=== PATIENT | female | born 1975 ===

== ENCOUNTER 2017-03-11 14:13 | Inpatient (IN) | payer OTHER, MEDICAID ==
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
[2017-03-11 18:08] LABS: BASO # 0.1 K/uL (0.0-0.2); BASO % 1.3 % (0.0-2.0); EOS # 0.1 K/uL (0.0-0.7); EOS % 1.7 % (0.0-4.0); HEMOGLOBIN 12.4 g/dL (12.0-16.0); LYMPH # 2.2 K/uL (1.0-4.3); LYMPH % 29.2 % (20.0-40.0); MEAN CELL VOLUME 82.8 fl (81.0-99.0); MEAN CORPUSCULAR HEMOGLOBIN 26.6 pg (27.0-31.0); MEAN CORPUSCULAR HGB CONC 32.1 g/dL (33.0-37.0); MEAN PLATELET VOLUME 8.7 fl (7.2-11.7); MONO # 0.5 K/uL (0.0-0.8); MONO % 6.4 % (0.0-10.0); NEUT # 4.6 K/uL (1.8-7.0); NEUT % 61.4 % (50.0-75.0); RBC 4.67 Mil/uL (3.80-5.20); RED CELL DISTRIBUTION WIDTH 13.3 % (11.5-14.5); WHITE BLOOD COUNT 7.5 K/uL (4.8-10.8)
[2017-03-11 18:20] LABS: ALB/GLOB RATIO 1.2 (1.0-2.1); ALBUMIN 3.7 g/dL (3.5-5.0); ALT/SGPT 44 U/L (9-52); AST/SGOT 29 U/L (14-36); BLOOD UREA NITROGEN 13 mg/dl (7-17); GFR AFRICAN-AMERICAN > 60; GFR NON-AFRICAN AMERICAN > 60
[2017-03-11 18:46] LABS: SQUAMOUS EPITHIAL 2 /hpf (0-5); URINE BACTERIA OCC (<OCC); URINE BILIRUBIN NEGATIVE (NEGATIVE); URINE BLOOD NEGATIVE (NEGATIVE); URINE CLARITY SLIGHTY-CLOUDY (Clear); URINE COLOR YELLOW (YELLOW); URINE GLUCOSE (UA) NEG (Normal); URINE LEUKOCYTE ESTERASE NEG Leu/uL (Negative); URINE NITRATE NEGATIVE (NEGATIVE); URINE PROTEIN NEGATIVE (NEGATIVE); URINE UROBILINOGEN 0.2-1.0 mg/dL (0.2-1.0)
[2017-03-11 18:55] LABS: BARBITURATES, UR NEGATIVE (NEGATIVE); OPIATES, UR NEGATIVE (NEGATIVE); PHENCYCLIDINE, UR NEGATIVE (NEGATIVE)
[2017-03-11 19:25] LABS: BENZODIAZEPINES, UR POSITIVE (NEGATIVE)
[2017-03-11] MEDS ORDERED: DiphenhydrAMINE 50 mg/ml Inj IM PRN (21:09)
[2017-03-11] MEDS ORDERED: Magnesium Hydroxide Susp 30 ml UD PO PRN (21:09)
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
--- NOTE | 2017-03-12 08:45 | RAD ---
HISTORY: admit COMPARISON: No prior. FINDINGS: LUNGS: No active pulmonary disease. PLEURA: No significant pleural effusion identified, no pneumothorax apparent. CARDIOVASCULAR: Normal. OSSEOUS STRUCTURES: No significant abnormalities. VISUALIZED UPPER ABDOMEN: Normal. OTHER FINDINGS: None. IMPRESSION: No acute cardiopulmonary disease appreciated.
[2017-03-12 09:22] LABS: T4 14.7 ug/dl (5.5-11.0)
[2017-03-12] MEDS ORDERED: Pneumococcal 23-Valent Vaccine IM ONE (10:00)
[2017-03-12] MEDS ORDERED: Influenza Vaccine 18yr & older 0.5 ML/45 MCG SYR IM ONE (10:00)
[2017-03-12] MEDS ORDERED: Patient's Own Med (Cyclosporine [Restasis] 1 DROP) EACHEYE SCH (13:15)
[2017-03-12] MEDS ORDERED: Artificial Tears Opht Soln OU PRN (14:45)
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
--- NOTE | 2017-03-12 19:34 | CARD ---
APPROVED REPORT EKG Measurement Heart [id number] <Conclusion> Normal sinus rhythm Incomplete right bundle branch block Borderline ECG
[2017-03-13] MEDS ORDERED: NORGESTIMATE ETHINYL ESTRADIOL PO SCH (09:00)
[2017-03-13 11:56] VITALS: O2SAT 20
--- NOTE | 2017-03-13 13:13 | PCM.PYCHPN ---
Psychiatric Progress Note - Psychiatric Progress Note Patient seen today, length of contact: pt seen and evaluated Patient Chief Complaint: Pt has been feeling still very depressed and anxious and still has lot of flashbacks from past trauma and also feels paranoid a lot..pt denies suicidal ideation .no side effects to meds .pt still has tremors and wants cogentin to be 2 mg bid and she takes geodon as 80 mg twice a day. Medication Change: Yes Medical Record Reviewed: Yes Mental Status Examination - Cognitive Function Orientation: Person, Place, Situation, Time Attention: Poor Concentration: Poor Association: WNL Fund of Knowledge: WNL - Mood Mood: Depressed - Affect Affect: Constricted - Formal Thought Process Formal Thought Process: Hallucinations - Suicidal Ideation Suicidal Ideation: No - Homicidal Ideation Homicidal Ideation: No Goal/Treatment Plan - Goal/Treatment Plan Progress Toward Problem(s) and Goals/Treatment Plan: pt has agreed to start on geodon will increase it to 80 am and hs to target depression and psychosis and mood,continue exapro 20 mg daily and trazodone 200 mg hs and restoril 30 mg hs and increase klonopin to 0.5 mg tid and cogentin 2 mg bid mary follow up with hospitalist regarding medical issues
--- NOTE | 2017-03-14 14:29 | PCM.PYCHPN ---
Psychiatric Progress Note - Psychiatric Progress Note Patient seen today, length of contact: pt seen and evaluated Patient Chief Complaint: I am tired and I cant be in a group home Problems Identified/Issues Discussed: pt seen in bed , guarded, isolative, paranoid poor eye contact continues to report depressed mood, with passive suicidal ideation no plan on the unit denied command hallucinations , no reported side effects of medications DSM 5 Symptoms Update: schizoaffective disorder Medication Change: No Medical Record Reviewed: Yes Mental Status Examination - Cognitive Function Orientation: Person, Place, Situation, Time Attention: Poor Concentration: Poor Association: WNL Fund of Knowledge: WNL - Mood Mood: Depressed - Affect Affect: Constricted - Formal Thought Process Formal Thought Process: Hallucinations - Suicidal Ideation Suicidal Ideation: No - Homicidal Ideation Homicidal Ideation: No Goal/Treatment Plan - Goal/Treatment Plan Need for Continued Stay: Severe depression anxiety, Discharge may exacerbated symptoms Progress Toward Problem(s) and Goals/Treatment Plan: continue with geodon lexapro and trazdone monitor pt for psychopharmacological effects encourage to attendgroups group and supportive therapy Estimated Date of D/C: 03/18/17
--- NOTE | 2017-03-15 12:47 | PCM.PYCHPN ---
Psychiatric Progress Note - Psychiatric Progress Note Patient seen today, length of contact: pt seen and evaluated Patient Chief Complaint: I am too anxious about being in a alf Problems Identified/Issues Discussed: pt seen in bed , continues to be guarded,and isolative, unkempt , needs a lot of encouragment to attaend groups pt reported feeling anxious and worried about being discharged to a alf continues to report depressed mood, with passive suicidal ideation no plan on the unit denied command hallucinations , no reported side effects of medications Medication Change: Yes (klonopin 0.25mg tid) Medical Record Reviewed: Yes Mental Status Examination - Cognitive Function Orientation: Person, Place, Situation, Time Attention: Poor Concentration: Poor Association: WNL Fund of Knowledge: WNL Decription of patient's judgement and insights: impaired insight and poor judgment - Mood Mood: Depressed - Affect Affect: Constricted - Speech Speech: Soft - Formal Thought Process Formal Thought Process: Hallucinations - Suicidal Ideation Suicidal Ideation: No - Homicidal Ideation Homicidal Ideation: No Goal/Treatment Plan - Goal/Treatment Plan Need for Continued Stay: Severe depression anxiety, Discharge may exacerbated symptoms Progress Toward Problem(s) and Goals/Treatment Plan: continue with cosme serrano and trazdone monitor pt for psychopharmacological effects encourage to attendgroups group and supportive therapy addiction social worker to arrange for the discharge plan Estimated Date of D/C: 03/18/17
--- NOTE | 2017-03-16 13:34 | PCM.PYCHPN ---
Psychiatric Progress Note - Psychiatric Progress Note Patient seen today, length of contact: pt seen and evaluated Patient Chief Complaint: I am worried about my mother Problems Identified/Issues Discussed: pt on evaluation, more visible on the unit, less isolative continues to present with anxious mood and affect pt reported worried about her mother and being in a fci, concrete thought process, no reported side effects of medications, denied suicidal or homicidal ideations denied command hallucinations DSM 5 Symptoms Update: schizophrenia Medication Change: Yes (start neurontin for anxiety) Medical Record Reviewed: Yes Mental Status Examination - Cognitive Function Orientation: Person, Place, Situation, Time Attention: Poor Concentration: Poor Association: WNL Fund of Knowledge: WN Decription of patient's judgement and insights: impaired insight and poor judgment - Mood Mood: Depressed, Anxious - Affect Affect: Constricted - Speech Speech: Soft - Formal Thought Process Formal Thought Process: Paranoia, Circumstantial Psychotic Thoughts and Behaviors: pt paranoid and guarded, denied perceptual disturbances, non elicited - Suicidal Ideation Suicidal Ideation: No - Homicidal Ideation Homicidal Ideation: No Goal/Treatment Plan - Goal/Treatment Plan Need for Continued Stay: Severe depression anxiety, Discharge may exacerbated symptoms Progress Toward Problem(s) and Goals/Treatment Plan: continue with geodon lexapro and trazdone start neurontin 100mg tid for anxiety monitor pt for psychopharmacological effects encourage to attend groups group and supportive therapy social and political studies professor to arrange for the discharge plan Estimated Date of D/C: 03/18/17
[2017-03-16] MEDS: Alum-Mag Hydrox-Simethicone Susp (30 mL) PO PRN (22:17)
--- NOTE | 2017-03-17 12:24 | PCM.PYCHPN ---
Psychiatric Progress Note - Psychiatric Progress Note Patient seen today, length of contact: pt seen and evaluated Patient Chief Complaint: I think my mother is not well Problems Identified/Issues Discussed: pt on evaluation, presenting with anxious mood and affect as her mother has been admitted to medical floor, pt reported poor sleep with early insomnia, contines to be anxious about being discharged to nursing home, concrete thought process and limited insight into illness, denied any current suicidal or homicidal ideations denied perceptual disturbances, no reported side effects of medications DSM 5 Symptoms Update: schizoaffective disorder Medication Change: No Medical Record Reviewed: Yes Mental Status Examination - Cognitive Function Orientation: Person, Place, Situation, Time Attention: Poor Concentration: Poor Association: WNL Fund of Knowledge: WNL Decription of patient's judgement and insights: impaired insight and poor judgment - Mood Mood: Depressed, Anxious - Affect Affect: Constricted - Speech Speech: Soft - Formal Thought Process Formal Thought Process: Paranoia, Circumstantial Psychotic Thoughts and Behaviors: pt paranoid and guarded, denied perceptual disturbances, non elicited - Suicidal Ideation Suicidal Ideation: No - Homicidal Ideation Homicidal Ideation: No Goal/Treatment Plan - Goal/Treatment Plan Need for Continued Stay: Severe depression anxiety, Discharge may exacerbated symptoms Progress Toward Problem(s) and Goals/Treatment Plan: continue with geodon lexapro and trazdone continue neurontin 100mg tid for anxiety monitor pt for psychopharmacological effects and side effect profile encourage to attend groups group and supportive therapy social science analyst to arrange for the discharge plan Estimated Date of D/C: 03/18/17
--- NOTE | 2017-03-18 13:28 | PCM.PYCHPN ---
Psychiatric Progress Note - Psychiatric Progress Note Patient seen today, length of contact: pt seen and evaluated Patient Chief Complaint: I slept better last night Problems Identified/Issues Discussed: pt on evaluation, more interactive, reported feeling less anxious as she had better sleep last night, encouraged pt to participate in groups pt denied any current sucidal or homicidal ideations, denied perceptual disturbances, no reported side effects of current medications DSM 5 Symptoms Update: schizophrenia Medication Change: No Medical Record Reviewed: Yes Mental Status Examination - Cognitive Function Orientation: Person, Place, Situation, Time Attention: WNL Concentration: Poor Association: WNL Fund of Knowledge: Poor Decription of patient's judgement and insights: impaired insight and poor judgment - Mood Mood: Depressed, Anxious - Affect Affect: Constricted - Speech Speech: Soft - Formal Thought Process Formal Thought Process: Paranoia, Circumstantial Psychotic Thoughts and Behaviors: pt paranoid and guarded, denied perceptual disturbances, non elicited - Suicidal Ideation Suicidal Ideation: No - Homicidal Ideation Homicidal Ideation: No Goal/Treatment Plan - Goal/Treatment Plan Need for Continued Stay: Severe depression anxiety, Discharge may exacerbated symptoms Progress Toward Problem(s) and Goals/Treatment Plan: continue with geodon, lexapro and trazdone repeat EKG , pt on geodon continue neurontin 100 mg tid for anxiety monitor pt for psychopharmacological effects and side effect profile encourage to attend groups group and supportive therapy health and social care teacher to arrange for the discharge plan Estimated Date of D/C: 03/18/17
--- NOTE | 2017-03-18 18:04 | CARD ---
APPROVED REPORT EKG Measurement Heart [id number] <Conclusion> Normal sinus rhythm Normal ECG
--- NOTE | 2017-03-19 11:05 | PCM.PYCHPN ---
Psychiatric Progress Note - Psychiatric Progress Note Patient seen today, length of contact: Patient evaluated, case discussed with team, chart reviewed Patient Chief Complaint: "I heard voices." Problems Identified/Issues Discussed: Patient has thought blocking and has delayed responses when senior copywriter asks questions. She is disorganized at times and perseverative. She reports that she heard auditory hallucinations last night of people talking/laughing/ cursing. She is also paranoid that someone is trying to harm her mother. She is difficult to redirect on conversation. It is unclear how complaint the patient was with medications prior to admission. We discussed continuing the medications and possible titration if the patient is agreeable. Medication Change: No Medical Record Reviewed: Yes Consults ordered or reviewed: Medicine consult Mental Status Examination - Cognitive Function Orientation: Person, Place, Situation, Time Memory: Impaired Attention: WNL Concentration: Poor Association: Loose Fund of Knowledge: Poor Decription of patient's judgement and insights: Poor I/J - Mood Mood: Depressed, Anxious - Affect Affect: Constricted - Speech Speech: Soft - Formal Thought Process Formal Thought Process: Paranoia, Loosening of associations, Circumstantial Psychotic Thoughts and Behaviors: +Paranoia - Suicidal Ideation Suicidal Ideation: No - Homicidal Ideation Homicidal Ideation: No Goal/Treatment Plan - Goal/Treatment Plan Need for Continued Stay: Remain at risks for inpatient hospitalization, Severe depression anxiety, Discharge may exacerbated symptoms Progress Toward Problem(s) and Goals/Treatment Plan: Schizoaffective Disorder -Individual and group therapy -Continue current medications -Disposition planning Estimated Date of D/C: 03/23/17
--- NOTE | 2017-03-20 11:12 | PCM.PYCHPN ---
Psychiatric Progress Note - Psychiatric Progress Note Patient seen today, length of contact: Patient evaluated, case discussed with team, chart reviewed Patient Chief Complaint: "I heard voices." Problems Identified/Issues Discussed: Patient is disorganized at times. She is paranoid that someone is trying to harm her mother. She is difficult to redirect on conversation. It is unclear how complaint the patient was with medications prior to admission. We discussed continuing the medications and possible titration if the patient is agreeable. Medication Change: No Medical Record Reviewed: Yes Consults ordered or reviewed: Medicine consult Mental Status Examination - Cognitive Function Orientation: Person, Place, Situation, Time Memory: Impaired Attention: WNL Concentration: Poor Association: Loose Fund of Knowledge: Poor Decription of patient's judgement and insights: Poor I/J - Mood Mood: Depressed, Anxious - Affect Affect: Constricted - Speech Speech: Soft - Formal Thought Process Formal Thought Process: Paranoia, Loosening of associations, Circumstantial Psychotic Thoughts and Behaviors: +Paranoia - Suicidal Ideation Suicidal Ideation: No - Homicidal Ideation Homicidal Ideation: No Goal/Treatment Plan - Goal/Treatment Plan Need for Continued Stay: Remain at risks for inpatient hospitalization, Severe depression anxiety, Discharge may exacerbated symptoms Progress Toward Problem(s) and Goals/Treatment Plan: Schizoaffective Disorder -Individual and group therapy -Continue current medications -Disposition planning Estimated Date of D/C: 03/23/17
[2017-03-21] MEDS: Alum-Mag Hydrox-Simethicone Susp (30 mL) PO PRN (21:20)
--- NOTE | 2017-03-22 18:58 | PCM.PYCHPN ---
Psychiatric Progress Note - Psychiatric Progress Note Patient seen today, length of contact: Patient evaluated, case discussed with team, chart reviewed Patient Chief Complaint: pt reports was feeling worried and not sleeping, pt was seen in doorway of room Problems Identified/Issues Discussed: alteration in thought process and mood alteration in sleep Medical Problems: per chart Diagnostic Results: per psychiatry per medicine per nursing per social security benefits interviewer DSM 5 Symptoms Update: reports feeling calmer, sleeping is getting better staff report that pt appears to be at baseline has been adherent with medications visualization on unit Medication Change: No Medical Record Reviewed: Yes Consults ordered or reviewed: per hospitalist Mental Status Examination - Cognitive Function Orientation: Person, Place, Situation, Time Memory: Impaired Attention: WNL Concentration: Poor Association: Loose Fund of Knowledge: Poor Decription of patient's judgement and insights: somewhat impaired - Mood Mood: Depressed, Anxious - Affect Affect: Constricted - Speech Speech: Soft - Formal Thought Process Formal Thought Process: Loosening of associations, Circumstantial Psychotic Thoughts and Behaviors: paranoia appears at baseline per staff - Suicidal Ideation Suicidal Ideation: No - Homicidal Ideation Homicidal Ideation: No Goal/Treatment Plan - Goal/Treatment Plan Need for Continued Stay: Remain at risks for inpatient hospitalization, Discharge may exacerbated symptoms Progress Toward Problem(s) and Goals/Treatment Plan: inpt admission visualization/vital signs per protocol and per clinical status adjust meds per clinical status access prn Eritrean speaking staff staff were in discussion with insurance -discharge planning in progress Estimated Date of D/C: 03/23/17 - Smoking Cessation Smoking Cessation Initiated: No Reason for not providing: pt defers
--- NOTE | 2017-03-23 09:59 | PCM.PYCHPN ---
Psychiatric Progress Note - Psychiatric Progress Note Patient seen today, length of contact: Patient evaluated, case discussed with team, chart reviewed Patient Chief Complaint: "I'm okay." Problems Identified/Issues Discussed: Patient is more organized. She denies acute paranoia or delusions. She reports that her mood is improving. We discussed that her current medications and the importance of compliance with treatment and medications. We discussed that the Restoril will be lowered to reduce risk of adverse effects. No current adverse effect to medications reported. Medication Change: Yes (Lower Restoril to 15 mg PO HS; Stop Neurotin) Medical Record Reviewed: Yes Consults ordered or reviewed: Medicine consult Mental Status Examination - Cognitive Function Orientation: Person, Place, Situation, Time Memory: Impaired Attention: WNL Association: WNL Fund of Knowledge: [facility] Decription of patient's judgement and insights: Fair I/J - Mood Mood: Anxious - Affect Affect: Constricted - Speech Speech: Appropriate - Formal Thought Process Formal Thought Process: No Impairment Psychotic Thoughts and Behaviors: NO AH/VH/paranoia - Suicidal Ideation Suicidal Ideation: No - Homicidal Ideation Homicidal Ideation: No Goal/Treatment Plan - Goal/Treatment Plan Need for Continued Stay: Remain at risks for inpatient hospitalization, Discharge may exacerbated symptoms Progress Toward Problem(s) and Goals/Treatment Plan: Schizoaffective Disorder; will discharge tomorrow w/ outpatient follow-up -Individual and group therapy -Continue Lexapro, Trazodone and Geodon; Lower Restoril to 15 mg PO HS; Stop Neurontin -Disposition planning Estimated Date of D/C: 03/24/17
[2017-03-24 09:19] VITALS: BP 114/77; PULSE 110; RESP 20; TEMP 97.2
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
== END 2017-03-24 14:45 | disposition home or self-care (01) | DRG 885 ==
LOC: H.ER 14:13 → H.ERHOLD 19:12 → H.PSYCH 20:56 → UNDODISIN 03-14 13:54
PROVIDERS: ADMIT Psychiatry & Neurology Psychiatry; ATTEND Psychiatry & Neurology Psychiatry
PROC: GZHZZZZ Group Psychotherapy (ICD-10-PCS; 2017-03-11)
PROC: GZ56ZZZ Individual Psychotherapy, Supportive (ICD-10-PCS; 2017-03-11)
PROC: 3E0234Z Introduction of Serum, Toxoid and Vaccine into Muscle, Percutaneous Approach (ICD-10-PCS; principal; 2017-03-12)
DX: F25.9 Schizoaffective disorder, unspecified (principal); R45.851 Suicidal ideations; F41.9 Anxiety disorder, unspecified; H04.123 Dry eye syndrome of bilateral lacrimal glands; Z23 Encounter for immunization

== ENCOUNTER 2017-04-07 17:06 | Emergency (ER) | payer MEDICAID ==
[2017-04-07 17:17] VITALS: PULSE 98; RESP 16; TEMP 98.1; O2SAT 100
--- NOTE | 2017-04-07 17:23 | ED PDOC ---
HPI: Psych/Substance Abuse Time Seen by Provider: 04/07/17 17:23 Chief Complaint (Nursing): Psychiatric Evaluation Chief Complaint (Provider): crisis eval History Per: Patient, EMS, Other (Police) Additional Complaint(s): 41-year-old female presents to emergency department for crisis evaluation. Patient is currently non-domiciled and was sitting in [employer] with her mother when she started to have thoughts of wanting to harm herself. As per police, patient had handful of pills in her hand and was threatening to take the pills. Patient currently lives in [facility]. She offers no acute medical complaints at this time. Past Medical History Reviewed: Historical Data, Nursing Documentation, Vital Signs Vital Signs: Last Vital Signs Temp 98.1 F 04/07/17 17:17 Pulse 98 H 04/07/17 17:17 Resp 16 04/07/17 17:17 BP Pulse Ox 100 04/07/17 17:17 - Medical History PMH: Depression, Schizophrenia - Family History Family History: States: No Known Family Hx - Living Arrangements Living Arrangements: With Family - Social History Current smoker - smoking cessation education provided: No Alcohol: None - Allergies Allergies/Adverse Reactions: Allergies Allergy/AdvReac Type Severity Reaction Status Date / Time No Known Allergies Allergy Verified 04/07/17 17:11 Review of Systems ROS Statement: Except As Marked, All Systems Reviewed And Found Negative Constitutional: Negative for: Fever Respiratory: Negative for: Cough Gastrointestinal: Negative for: Vomiting Psych: Positive for: Suicidal ideation Physical Exam - Reviewed Nursing Documentation Reviewed: Yes Vital Signs Reviewed: Yes - Physical Exam Appears: Positive for: Well, Non-toxic, No Acute Distress Skin: Negative for: Rash Eye Exam: Positive for: Normal appearance Cardiovascular/Chest: Positive for: Regular Rate, Rhythm Respiratory: Positive for: Normal Breath Sounds Gastrointestinal/Abdominal: Positive for: Soft. Negative for: Tenderness Back: Negative for: L CVA Tenderness, R CVA Tenderness Extremity: Positive for: Normal ROM Neurologic/Psych: Positive for: Alert, Oriented - ECG O2 Sat by Pulse Oximetry: 100 Pulse Ox Interpretation: Normal Medical Decision Making Medical Decision Makin41 year old here for crisis eval Plan: 1:1 bedside observation Crisis eval As per crisis counselor and psychiatrist stonecutter apprentice hand, Dr. Flores patient does not meet criteria for admission and is stable for discharge. Disposition - Clinical Impression Clinical Impression: Depression - Patient ED Disposition Is Patient to be Admitted: No Counseled Patient/Family Regarding: Diagnosis, Need For Followup - Disposition Referrals: [facility] [Outside] Disposition: Routine/Home Disposition Time: 18:36 Condition: STABLE Instructions: Depression Forms: [employer] (Tanzanian)
[2017-04-07 18:29] LABS: BASO # 0.1 K/uL (0.0-0.2); BASO % 0.9 % (0.0-2.0); EOS # 0.1 K/uL (0.0-0.7); EOS % 0.6 % (0.0-4.0); HEMOGLOBIN 13.2 g/dL (12.0-16.0); LYMPH # 1.8 K/uL (1.0-4.3); LYMPH % 17.5 % (20.0-40.0); MEAN CELL VOLUME 83.5 fl (81.0-99.0); MEAN CORPUSCULAR HEMOGLOBIN 26.5 pg (27.0-31.0); MEAN CORPUSCULAR HGB CONC 31.7 g/dL (33.0-37.0); MEAN PLATELET VOLUME 9.5 fl (7.2-11.7); MONO # 0.8 K/uL (0.0-0.8); MONO % 7.6 % (0.0-10.0); NEUT # 7.5 K/uL (1.8-7.0); NEUT % 73.4 % (50.0-75.0); NRBC % 0.1 % (0.0-0.0); RBC 4.98 Mil/uL (3.80-5.20); WHITE BLOOD COUNT 10.2 K/uL (4.8-10.8)
[2017-04-07 18:39] LABS: ACETAMINOPHEN < 10.0 ug/ml (10.0-30.0); SALICYLATE < 1.0 mg/dl
[2017-04-07 18:40] LABS: ALB/GLOB RATIO 1.4 (1.0-2.1); ALBUMIN 4.6 g/dL (3.5-5.0); ALT/SGPT 30 U/L (9-52); AST/SGOT 33 U/L (14-36); BLOOD UREA NITROGEN 11 mg/dl (7-17); CALCIUM 9.4 mg/dL (8.4-10.2); GFR AFRICAN-AMERICAN > 60; GFR NON-AFRICAN AMERICAN > 60
== END 2017-04-07 18:40 | disposition home or self-care (01) ==
LOC: MERGE 17:06 → H.ER 17:06
DX: F32.9 Major depressive disorder, single episode, unspecified (principal)

== ENCOUNTER 2017-04-14 04:12 | Inpatient (IN) | payer MEDICAID ==
[2017-04-14 04:30] VITALS: BMI 22.1
[2017-04-14 05:02] LABS: BASO # 0.1 K/uL (0.0-0.2); BASO % 0.6 % (0.0-2.0); EOS % 0.4 % (0.0-4.0); HEMOGLOBIN 12.6 g/dL (12.0-16.0); LYMPH # 1.3 K/uL (1.0-4.3); LYMPH % 13.9 % (20.0-40.0); MEAN CELL VOLUME 82.8 fl (81.0-99.0); MEAN CORPUSCULAR HEMOGLOBIN 26.8 pg (27.0-31.0); MEAN CORPUSCULAR HGB CONC 32.4 g/dL (33.0-37.0); MEAN PLATELET VOLUME 9.6 fl (7.2-11.7); MONO # 0.6 K/uL (0.0-0.8); MONO % 6.6 % (0.0-10.0); NEUT # 7.3 K/uL (1.8-7.0); NEUT % 78.5 % (50.0-75.0); RBC 4.68 Mil/uL (3.80-5.20); RED CELL DISTRIBUTION WIDTH 13.9 % (11.5-14.5); WHITE BLOOD COUNT 9.4 K/uL (4.8-10.8)
[2017-04-14 05:12] LABS: ALB/GLOB RATIO 1.4 (1.0-2.1); ALBUMIN 4.1 g/dL (3.5-5.0); ALT/SGPT 37 U/L (9-52); AST/SGOT 20 U/L (14-36); BLOOD UREA NITROGEN 14 mg/dl (7-17); CALCIUM 9.2 mg/dL (8.4-10.2); GFR AFRICAN-AMERICAN > 60; GFR NON-AFRICAN AMERICAN > 60
--- NOTE | 2017-04-14 05:20 | ED PDOC ---
HPI: Psych/Substance Abuse Time Seen by Provider: 04/14/17 04:26 Chief Complaint (Nursing): Psychiatric Evaluation Chief Complaint (Provider): Psychiatric Evaluation History Per: Patient History/Exam Limitations: no limitations Suicide/Self Injury Attempted (Context): None Associated Symptoms: Suicidal Thoughts. denies: Suicidal Plan Additional Complaint(s): 41 year old female presents to ED exhibiting bed-seeking behavior, has a past medical history of schizoaffective order, and is homeless. Patient has presented to ED 3 times in the last 24 hours and was discharged a few hours ago. Arrangements were made at a local [facility], but patient refused to disembark for prepaid taxi. Taxi subsequently brought patient back to ED. Patient notes suicidal thoughts with no plan, which is similar to previous two complaints in last 24 hours. Patient as discharged from the psychiatric unit x3 weeks ago. PCP: JAIRO Past Medical History Reviewed: Historical Data, Nursing Documentation, Vital Signs Vital Signs: Last Vital Signs Temp 98.9 F 04/14/17 04:31 Pulse 104 H 04/14/17 04:31 Resp 18 04/14/17 04:31 BP 132/87 04/14/17 04:31 Pulse Ox 100 04/14/17 04:31 - Medical History PMH: Anxiety, Depression, HTN, Schizophrenia Denies: Diabetes, Hepatitis, HIV, Chronic Kidney Disease, Seizures, Sexually Transmitted Disease - Family History Family History: States: Unknown Family Hx - Living Arrangements Living Arrangements: Other (Homeless) - Immunization History Hx Tetanus Toxoid Vaccination: No Hx Influenza Vaccination: No Hx Pneumococcal Vaccination: No - Home Medications Home Medications: Ambulatory Orders Medication Instructions Recorded Escitalopram [Lexapro] 20 mg PO DAILY #30 tab 03/23/17 Temazepam [Restoril] 15 mg PO HS #30 cap 03/23/17 Ziprasidone HCl [Geodon] 80 mg PO BID #60 capsule 03/23/17 traZODone [Desyrel] 200 mg PO HS #60 tab 03/23/17 - Allergies Allergies/Adverse Reactions: Allergies Allergy/AdvReac Type Severity Reaction Status Date / Time diphenhydramine Allergy RASH Verified 04/14/17 04:30 [From Benadryl] haloperidol [From Haldol] Allergy RASH Verified 04/14/17 04:30 olanzapine [From Zyprexa] Allergy VOMITING Verified 04/14/17 04:30 quetiapine [From Seroquel] Allergy RASH Verified 04/14/17 04:30 Tetracyclines Allergy RASH Verified 04/14/17 04:30 Review of Systems ROS Statement: Except As Marked, All Systems Reviewed And Found Negative Psych: Positive for: Suicidal ideation Physical Exam - Reviewed Nursing Documentation Reviewed: Yes Vital Signs Reviewed: Yes - Physical Exam Appears: Positive for: Non-toxic, No Acute Distress Skin: Positive for: Normal Color, Warm, Dry Eye Exam: Positive for: Normal appearance Cardiovascular/Chest: Positive for: Regular Rate, Rhythm. Negative for: Murmur Respiratory: Negative for: Respiratory Distress Gastrointestinal/Abdominal: Positive for: Soft. Negative for: Tenderness Extremity: Positive for: Normal ROM. Negative for: Deformity Neurologic/Psych: Positive for: Alert, Oriented, Mood/Affect (flat). Negative for: Motor/Sensory Deficits - Laboratory Results Result Diagrams: 04/14/17 04:59 04/14/17 04:59 - ECG O2 Sat by Pulse Oximetry: 100 (RA) Pulse Ox Interpretation: Normal Medical Decision Making Medical Decision Makin Initial impression: suicidal ideation in setting of known schizoaffective disorder and possible bed-seeking behavior Initial plan: * EKG * EtOH serum * Labs * UDrug screen * Crisis eval * UPreg * 1:1 OBS 0524 Labs reviewed: no clinically significant abnormal. Patient has been evaluated by crisis and will be admitted under Dr. Mathews ( INPATIENT ADULT PSYCHIATRY) for schizoaffective disorder. Patient is medically stable for psychiatric admission. Scribe Attestation: Documented by Dianna De Leon acting as a scribe for Rikki Mayen MD. Scribe Attestation: All medical record entries made by the Scribe were at my direction and personally dictated by me. I have reviewed the chart and agree that the record accurately reflects my personal performance of the history, physical exam, medical decision making, and the department course for this patient. I have also personally directed, reviewed, and agree with the discharge instructions and disposition. Disposition - Clinical Impression Clinical Impression: Schizoaffective disorder - Patient ED Disposition Is Patient to be Admitted: Yes - Disposition Disposition Time: 05:24 Condition: STABLE - Pt Status Changed To: Hospital Disposition Of: Inpatient (INPATIENT ADULT PSYCHIATRY) - Admit Certification Admit to Inpatient:: After my assessment, the patient will require hospitalization for at least two midnights. This is because of the severity of symptoms shown, intensity of services needed, and/or the medical risk in this patient being treated as an outpatient.
[2017-04-14 05:30] LABS: SQUAMOUS EPITHIAL 3 /hpf (0-5); URINE BILIRUBIN NEGATIVE (NEGATIVE); URINE BLOOD NEGATIVE (NEGATIVE); URINE CLARITY CLOUDY (Clear); URINE COLOR YELLOW (YELLOW); URINE GLUCOSE (UA) NEG (Normal); URINE LEUKOCYTE ESTERASE TRACE Leu/uL (Negative); URINE NITRATE NEGATIVE (NEGATIVE); URINE PROTEIN 30 mg/dL (NEGATIVE); URINE UROBILINOGEN 0.2-1.0 mg/dL (0.2-1.0)
[2017-04-14 05:44] LABS: BARBITURATES, UR NEGATIVE (NEGATIVE); BENZODIAZEPINES, UR NEGATIVE (NEGATIVE); OPIATES, UR NEGATIVE (NEGATIVE); PHENCYCLIDINE, UR NEGATIVE (NEGATIVE)
[2017-04-14 09:06] VITALS: O2SAT 100
--- NOTE | 2017-04-14 09:32 | RAD ---
HISTORY: admit COMPARISON: Chest radiograph dated 03/11/2017 FINDINGS: LUNGS: No active pulmonary disease. PLEURA: No significant pleural effusion identified, no pneumothorax apparent. CARDIOVASCULAR: Normal. OSSEOUS STRUCTURES: No significant abnormalities. VISUALIZED UPPER ABDOMEN: Normal. OTHER FINDINGS: Stable small axillary region calcification. IMPRESSION: No active disease.
[2017-04-14] MEDS ORDERED: Alum-Mag Hydrox-Simethicone Susp (30 mL) PO PRN (10:03)
[2017-04-14] MEDS ORDERED: DiphenhydrAMINE 50 mg/ml Inj IM PRN (10:03)
[2017-04-14] MEDS ORDERED: Magnesium Hydroxide Susp 30 ml UD PO PRN (10:03)
--- NOTE | 2017-04-14 10:54 | PCM.PSYCH ---
Initial Psychiatric Evaluation - Initial Psychiatric Evaluation Type of Admission: Voluntary Legal Status: Capacity Chief Complaint (in patient's own words): "I wasn't feeling safe." Patient's Reaction to Hospitalization: HPI: 41 yo female w/ h/o schizoaffective disorder, presented to the ER 3 times, now w/ complaints of paranoia that someone wants to harm her, disorganized thoughts, and pressured speech. She denies acute AH/VH, but seems internally preoccupied at times. She reports feeling depressed and anxious, but denies SI/ HI. She reports that she has not been compliant with her medications upon discharge. She also reports sleep/appetite disturbances. PPHx: H/o schizoffective disorder, treated on 3NS last month PMHx: Subclinical hypothyroidism SHx: Homeless, denies drugs/etoh/cig. ALL: Patient reports several drug allergies including Benadryl, Haldol, Zyprexa , Seroquel and Tetracyclines; its seems that the patient does not like to take these medications and states that she is allergic to them to avoid being prescribed them Current Medications: Active Medications Generic Name Dose Route Start Last Admin Trade Name Freq PRN Reason Stop Dose Admin Acetaminophen 650 mg 04/14/17 10:03 Tylenol 325mg Tab PO Q4 PRN Pain, moderate (4-7) Al Hydrox/Mg Hydrox/Simethicone 30 ml 04/14/17 10:03 Maalox Plus 30 Ml PO Q4 PRN Dyspepsia Escitalopram Oxalate 20 mg 04/15/17 09:00 Lexapro PO DAILY WINNIE Lorazepam 2 mg 04/14/17 10:03 Ativan IM Q4 PRN Anxiety/Agitation,Unable PO Lorazepam 2 mg 04/14/17 10:03 Ativan PO Q4 PRN Anxiety/Agitation Magnesium Hydroxide 30 ml 04/14/17 10:03 Milk Of Magnesia PO HS PRN Constipation Trazodone HCl 100 mg 04/14/17 22:00 Desyrel PO HS WINNIE Ziprasidone 80 mg 04/14/17 17:00 Geodon Cap PO BID WINNIE Past Psychiatric History - Past Psychiatric History Previous Treatment History: Inpatient Pertinent Medical Hx (Current Medical&Sleep Prob, Allergies): Allergies Allergy/AdvReac Type Severity Reaction Status Date / Time diphenhydramine Allergy RASH Verified 04/14/17 04:30 [From Benadryl] haloperidol [From Haldol] Allergy RASH Verified 04/14/17 04:30 olanzapine [From Zyprexa] Allergy VOMITING Verified 04/14/17 04:30 quetiapine [From Seroquel] Allergy RASH Verified 04/14/17 04:30 Tetracyclines Allergy RASH Verified 04/14/17 04:30 Escitalopram [Lexapro] 20 mg PO DAILY #30 tab 03/23/17 Temazepam [Restoril] 15 mg PO HS #30 cap 03/23/17 Ziprasidone HCl [Geodon] 80 mg PO BID #60 capsule 03/23/17 traZODone [Desyrel] 200 mg PO HS #60 tab 03/23/17 Review of Systems - Psychiatric Psychiatric: Abnormal Sleep Pattern, Anxiety, Depression, Difficulty Concentrating, Irritability, Mood Swings, Paranoia Mental Status Examination - Personal Presentation Personal Presentation: Looks stated age - Affect Affect: Constricted - Motor Activity Motor Activity: Calm - Reliability in Providing Information Reliability in Providing Information: Poor, due to alteration in thoughts - Speech Speech: Disorganized, Tangential - Mood Mood: Depressed, Anxious - Formal Thought Process Formal Thought Process: Paranoia - Hallucinations/Delusions Additional comments: Denies AH/VH - Cognitive Functions Orientation: Person, Place, Situation Sensorium: Drowsy (Was recently medicated w/ PRN medications) Judgement: Imparied, as evidence by: Lack of insight into illness Memory: Recent intact, as evidence by: Ability to recall events of the day, Remote intact, as evidenced by: Abilit to recall sig. life events - Risk Risk: Diminished functioning - Strength & Assets Inventory Strength & Assets Inventory: Cooperative - Limitations Limitations: Other (Homelessness, Poverty) DSM 5 DX - DSM 5 DSM 5 Diagnosis: Schizoaffective Disorder - Recommended/Plan of Treatment Treatment Recommendations and Plan of Treatment: Schizoaffective Disorder; patient needs acute inpatient admission for treatment and stabilization -Admit to psychiatry unit -Individual and group therapy -Restart Geodon, Trazodone and Lexapro -Medicine consult -Disposition planning Projected ELOS: 3-7 days Discharge Plan and Discharge Criteria: Discharge patient when she is psychiatrically stable - Smoking Cessation Smoking Cessation Initiated: No Reason for not providing: Not indicated
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
--- NOTE | 2017-04-14 18:16 | PCM.BM ---
<MaycoJaniya Giovanna - Last Filed: 04/14/17 18:14> Treatment Plan Problems - Problems identified on initial assessmt command/auditory hallucinations Date Initiated: 04/14/17 Time Initiated: 18:19 Assessment reference: HP, PE, NA Status: Active altered thought process Date Initiated: 04/14/17 Time Initiated: 18:19 Assessment reference: HP, PE, NA Status: Active medication adherence Date Initiated: 04/14/17 Time Initiated: 18:19 Assessment reference: HP, PE, NA Status: Active selfcare deficit Date Initiated: 04/14/17 Time Initiated: 18:20 Assessment reference: HP, PE, NA ineffective family coping Date Initiated: 04/14/17 Time Initiated: 18:20 Assessment reference: HP, PE, NA Treatment assets and liabiliti Patient Assests: adapts well, cooperative, ADL independent, physically healthy, negotiates basic needs, cognitively intact Patient Liabilities: financial problems, poor support system, other - Milieu Protocol Maintain good personal hygiene: daily Encourage regular showers, daily Remind patient to perform daily oral care, daily Assist patient to perform ADL's Maintain personal safety: every shift Educate patient to report safety concerns to staff, every shift Monitor environment for contraband/sharps Medication safety: Monitor for expected outcome, potential side effects: every shift, Assess barriers to learning: every shift, Assess readiness for medication education: every shift Milieu Narrative: Schizoaffective Disorder; patient needs acute inpatient admission for treatment and stabilization -Admit to psychiatry unit -Individual and group therapy -Restart Geodon, Trazodone and Lexapro -Medicine consult -Disposition planning Discharge/Continuing Care - Treatment Team Participation Patient/Family/SO Statement: Schizoaffective Disorder; patient needs acute inpatient admission for treatment and stabilization -Admit to psychiatry unit -Individual and group therapy -Restart Geodon, Trazodone and Lexapro -Medicine consult -Disposition planning <Beena Enciso - Last Filed: 04/15/17 08:59> - Diagnosis (1) Schizoaffective disorder Status: Acute Interventions: Medication management, Individual and group therapy, Psychoeducation 04/15/17 08:59 <Chante Lopez - Last Filed: 04/15/17 15:27> Family Contact Family contact: Patient agrees to contact Family contact name: Karlene beauchamp Family contact comment: [phone] - Outside Agency [facility] involvment: Information-sharing Agency contact number: [phone] - Goals for Treatment Patient goals for treatment: Pt presents with disorganized thought process, unable to state goals for treatment. Discharge/Continuing Care - Education Needs Education Needs: Family Medication, Family Diagnosis/Disease Process, Family Coping Skills, Family Placement options, Family Community resources, Family Activities of Daily Living, Family Health Practices/Safety, Family Personal Hygiene/Grooming, Family Aftercare Safety Plan, Patient Medication, Patient Diagnosis/Disease Process, Patient Coping Skills, Patient Placement options, Patient Community resources, Patient Activities of Daily Living, Patient Health Practices/Safety, Patient Personal Hygiene/Grooming, Patient Aftercare Safety Plan - Discharge Discharge Criteria: Tolerates medication w/o severe side effects, Free of Suicidal thoughts, Free of paranoid thoughts, Free of agitation, Normal sleep pattern, Ability to care for self, Reduction of target symptoms [facility]:: [facility] - Additional Comments 04/15/17 15:21 Pt seen and discussed in team meeting. Reason for admission reviewed and discussed. Pt reported she was referred tot he ED for "suicidal thoughts." Pt reported that while in the ED she felt because "they wouldn't help me." It is unclear as to what happened. Pt unable to provide additional information. Pt reported that she and her mother have been staying at the [facility] and the [facility]. Pt reported that she continues to be fearful of staying at the jail and does not sleep well. Pt reported medication non- compliance stating "didn't have time to take them." Pt reported feeling depressed and anxious. Pt reported that prior to hospitalizations he was "hearing voices telling me to kill my mother and myself." Pt did not provide further information when asked if she had a plan. Pt also reported she feels as "someone is trying to poison me." Pt reported feeling safe in the hospital. At time of meeting pt denied active SI and Hi. Pt reported her mood was "better no. " Pt's medications reviewed and discussed. Tx plan reviewed and discussed; pt is agreeable. [facility] will continue to follow case and attempt to locate pt's mother, Karlene Nunez - Treatment Team Participation Discussed with Family/SO: No Was Patient/Family/SO present at Treatment Team Meeting: Yes
--- NOTE | 2017-04-14 19:02 | CARD ---
APPROVED REPORT EKG Measurement Heart [id number] IN [id number] <Conclusion> Normal sinus rhythm Incomplete right bundle branch block Borderline ECG
--- NOTE | 2017-04-15 12:27 | PCM.PYCHPN ---
Psychiatric Progress Note - Psychiatric Progress Note Patient seen today, length of contact: Patient was evaluated, case discussed with team, chart reviewed Patient Chief Complaint: "I wasn't feeling safe." Problems Identified/Issues Discussed: Patient reports that she last heard [facility] yesterday to kill herself and others. She reports paranoia that someone wants to poison her food. She is preoccupied about the wellbeing of her mother. She has a delusion or visual hallucation that she had a vistor today named Cedric Cope who she described as "small" and weird looking. Patient has poor insight into her acute psychosis. Psychoeducation was provided on the importance of compliance w/ treatment and medications. Medication Change: No Medical Record Reviewed: Yes Consults ordered or reviewed: Medicine consult Mental Status Examination - Cognitive Function Orientation: Person, Place, Situation Memory: Impaired Attention: Poor Concentration: Poor Association: Loose Fund of Knowledge: Poor Decription of patient's judgement and insights: Poor I/J - Mood Mood: Depressed, Anxious - Affect Affect: Constricted - Speech Speech: Soft - Formal Thought Process Formal Thought Process: Hallucinations, Delusions, Paranoia Psychotic Thoughts and Behaviors: +Paranoia/delusions/ possible VH - Suicidal Ideation Suicidal Ideation: No - Homicidal Ideation Homicidal Ideation: No Goal/Treatment Plan - Goal/Treatment Plan Need for Continued Stay: Remain at risks for inpatient hospitalization, Discharge may exacerbated symptoms, Severe functional impairment Progress Toward Problem(s) and Goals/Treatment Plan: Schizoaffective Disorder; patient needs acute inpatient admission for treatment and stabilization -Individual and group therapy -Continue Geodon, Trazodone and Lexapro -Medicine consult -Disposition planning Estimated Date of D/C: 04/20/17
[2017-04-15 14:16] LABS: T4 11.6 ug/dl (5.5-11.0)
--- NOTE | 2017-04-16 10:07 | PCM.PYCHPN ---
Psychiatric Progress Note - Psychiatric Progress Note Patient seen today, length of contact: Patient was evaluated, case discussed with team, chart reviewed Patient Chief Complaint: "I wasn't feeling safe." Problems Identified/Issues Discussed: Patient continues to report AH/paranoia and delusions. She continues to have poor insight into her psychiatric illness. She is compliant with medications and denies current adverse effects. Patient was encouraged to attend groups. Psychoeducation provided on the importance of compliance with treatment and medications. Medication Change: No Medical Record Reviewed: Yes Consults ordered or reviewed: Medicine consult Mental Status Examination - Cognitive Function Orientation: Person, Place, Situation Memory: Impaired Attention: Poor Concentration: Poor Association: Loose Fund of Knowledge: Poor Decription of patient's judgement and insights: Poor I/J - Mood Mood: Depressed, Anxious - Affect Affect: Constricted - Speech Speech: Soft - Formal Thought Process Formal Thought Process: Hallucinations, Delusions, Paranoia Psychotic Thoughts and Behaviors: +Paranoia/delusions - Suicidal Ideation Suicidal Ideation: No - Homicidal Ideation Homicidal Ideation: No Goal/Treatment Plan - Goal/Treatment Plan Need for Continued Stay: Remain at risks for inpatient hospitalization, Discharge may exacerbated symptoms, Severe functional impairment Progress Toward Problem(s) and Goals/Treatment Plan: Schizoaffective Disorder; patient needs acute inpatient admission for treatment and stabilization -Individual and group therapy -Continue Geodon, Trazodone and Lexapro -Medicine consult -Disposition planning Estimated Date of D/C: 04/20/17
--- NOTE | 2017-04-17 10:08 | PCM.PYCHPN ---
Psychiatric Progress Note - Psychiatric Progress Note Patient seen today, length of contact: Patient was evaluated, case discussed with team, chart reviewed Patient Chief Complaint: "I wasn't feeling safe." Problems Identified/Issues Discussed: Patient continues to report AH/paranoia and delusions. She continues to have poor insight into her psychiatric illness. She is now refusing to take Geodon because for unclear reasons, patient does not have an allergy to it, despite now believing that she does. She was agreeable to starting Risperdal. r/b/se reviewed. Patient was encouraged to attend groups. Psychoeducation provided on the importance of compliance with treatment and medications. Medication Change: Yes (Stop Geodon, start Risperdal) Medical Record Reviewed: Yes Consults ordered or reviewed: Medicine consult Mental Status Examination - Cognitive Function Orientation: Person, Place, Situation Memory: Impaired Attention: Poor Concentration: Poor Association: Loose Fund of Knowledge: Poor Decription of patient's judgement and insights: Poor I/J - Mood Mood: Depressed, Anxious - Affect Affect: Constricted - Speech Speech: Soft - Formal Thought Process Formal Thought Process: Hallucinations, Delusions, Paranoia Psychotic Thoughts and Behaviors: +Paranoia/delusions - Suicidal Ideation Suicidal Ideation: No - Homicidal Ideation Homicidal Ideation: No Goal/Treatment Plan - Goal/Treatment Plan Need for Continued Stay: Remain at risks for inpatient hospitalization, Discharge may exacerbated symptoms, Severe functional impairment Progress Toward Problem(s) and Goals/Treatment Plan: Schizoaffective Disorder; patient needs acute inpatient admission for treatment and stabilization -Individual and group therapy -Trazodone and Lexapro -Stop Geodon, start Risperdal -Medicine consult -Disposition planning Estimated Date of D/C: 04/21/17
--- NOTE | 2017-04-18 11:45 | PCM.PYCHPN ---
Psychiatric Progress Note - Psychiatric Progress Note Patient seen today, length of contact: Patient was evaluated, case discussed with team, chart reviewed Patient Chief Complaint: "I wasn't feeling safe." Problems Identified/Issues Discussed: Patient continues to be paranoid and delusional w/ poor insight into her mental illness. She is disorganized, labile and tangential. She has been compliant with Risperdal and denies current adverse effects. Medication Change: Yes (Increase Risperdal) Medical Record Reviewed: Yes Consults ordered or reviewed: Medicine Mental Status Examination - Cognitive Function Orientation: Person, Place, Situation Memory: Impaired Attention: Poor Concentration: Poor Association: Loose Fund of Knowledge: Poor Decription of patient's judgement and insights: Poor I/J - Mood Mood: Depressed, Anxious - Affect Affect: Constricted - Speech Speech: Soft - Formal Thought Process Formal Thought Process: Hallucinations, Delusions, Paranoia Psychotic Thoughts and Behaviors: +Paranoia/delusions - Suicidal Ideation Suicidal Ideation: No - Homicidal Ideation Homicidal Ideation: No Goal/Treatment Plan - Goal/Treatment Plan Need for Continued Stay: Remain at risks for inpatient hospitalization, Discharge may exacerbated symptoms, Severe functional impairment Progress Toward Problem(s) and Goals/Treatment Plan: Schizoaffective Disorder; patient needs acute inpatient admission for treatment and stabilization -Individual and group therapy -Continue Trazodone and Lexapro -Increase Risperdal -Medicine consult -Disposition planning Estimated Date of D/C: 04/22/17
--- NOTE | 2017-04-19 08:45 | PCM.PYCHPN ---
Psychiatric Progress Note - Psychiatric Progress Note Patient seen today, length of contact: Patient was evaluated, case discussed with team, chart reviewed Patient Chief Complaint: "I wasn't feeling safe." Problems Identified/Issues Discussed: Patient continues to be paranoid and delusional w/ poor insight into her mental illness. She is disorganized, labile and tangential. She submitted a 48 hour letter requesting to be discharged. She denies adverse effects to medications. Medication Change: Yes (Increase Risperdal to 2 mg PO Q12) Medical Record Reviewed: Yes Consults ordered or reviewed: Medicine Mental Status Examination - Cognitive Function Orientation: Person, Place, Situation Memory: Impaired Attention: Poor Concentration: Poor Association: Loose Fund of Knowledge: Poor Decription of patient's judgement and insights: Poor I/J - Mood Mood: Depressed, Anxious - Affect Affect: Constricted - Speech Speech: Soft - Formal Thought Process Formal Thought Process: Delusions, Paranoia Psychotic Thoughts and Behaviors: +Paranoia/delusions - Suicidal Ideation Suicidal Ideation: No - Homicidal Ideation Homicidal Ideation: No Goal/Treatment Plan - Goal/Treatment Plan Need for Continued Stay: Remain at risks for inpatient hospitalization, Discharge may exacerbated symptoms, Severe functional impairment Progress Toward Problem(s) and Goals/Treatment Plan: Schizoaffective Disorder; patient needs acute inpatient admission for treatment and stabilization -Individual and group therapy -Continue Trazodone and Lexapro -Increase Risperdal to 2 mg PO Q12 -Screen for involuntary psychiatric admission -Medicine consult -Disposition planning Estimated Date of D/C: 04/22/17
--- NOTE | 2017-04-20 09:32 | PCM.PYCHPN ---
Psychiatric Progress Note - Psychiatric Progress Note Patient seen today, length of contact: Patient was evaluated, case discussed with team, chart reviewed Patient Chief Complaint: "I wasn't feeling safe." Problems Identified/Issues Discussed: Patient was screened for involuntary admission and was accepted, pending bed and transfer. Patient continues to be paranoid and delusional w/ poor insight into her mental illness. She is disorganized, labile and tangential. Medication Change: No Medical Record Reviewed: Yes Consults ordered or reviewed: Medicine Mental Status Examination - Cognitive Function Orientation: Person, Place, Situation Memory: Impaired Attention: Poor Concentration: Poor Association: Loose Fund of Knowledge: Poor Decription of patient's judgement and insights: Poor I/J - Mood Mood: Depressed, Anxious - Affect Affect: Constricted - Speech Speech: Soft - Formal Thought Process Formal Thought Process: Delusions, Paranoia Psychotic Thoughts and Behaviors: +Paranoia/delusions - Suicidal Ideation Suicidal Ideation: No - Homicidal Ideation Homicidal Ideation: No Goal/Treatment Plan - Goal/Treatment Plan Need for Continued Stay: Remain at risks for inpatient hospitalization, Discharge may exacerbated symptoms, Severe functional impairment Progress Toward Problem(s) and Goals/Treatment Plan: Schizoaffective Disorder; patient needs acute inpatient admission for treatment and stabilization -Individual and group therapy -Continue Trazodone and Lexapro -Continue Risperdal 2 mg PO Q12 -Transfer to [facility] when bed is available -Medicine consult -Disposition planning Estimated Date of D/C: 04/22/17
[2017-04-20 17:21] VITALS: BP 130/78; PULSE 87; RESP 20; TEMP 98.2
--- NOTE | 2017-04-21 10:09 | PCM.PYCHDC ---
Mental Status Examination - Mental Status Examination Orientation: Person, Place, Situation Memory: Impaired Mood: Anxious Affect: Constricted Speech: Soft Attention: Poor Concentration: Poor Association: Loose Fund of Knowledge: Poor Formal Thought Process: Delusions, Paranoia, Loosening of associations Description of patient's judgement and insight: Poor I/J Psychotic Thoughts and Behaviors: +Paranoia/delusions Suicidal Ideation: No Current Homicidal Ideation?: No Discharge Summary - Discharge Note Reason for Hospitalization: HPI: 41 yo female w/ h/o schizoaffective disorder, presented to the ER 3 times, now w/ complaints of paranoia that someone wants to harm her, disorganized thoughts, and pressured speech. She denies acute AH/VH, but seems internally preoccupied at times. She reports feeling depressed and anxious, but denies SI/ HI. She reports that she has not been compliant with her medications upon discharge. She also reports sleep/appetite disturbances. PPHx: H/o schizoffective disorder, treated on 3NS last month PMHx: Subclinical hypothyroidism SHx: Homeless, denies drugs/etoh/cig. ALL: Patient reports several drug allergies including Benadryl, Haldol, Zyprexa , Seroquel and Tetracyclines; its seems that the patient does not like to take these medications and states that she is allergic to them to avoid being prescribed them Consultations:: List each consultation separately and include: 1. Reason for request. 2. Findings. 3. Follow-up Consultations: Medicine Summary of Hospital Course include:: 1. Description of specific treatment plan utilized for patients during their course of treatmen. 2. Summarize the time- course for resolution of acute symptoms and/or regressed behaviors. 3. Describe issues identified and worked on during hospitalization. 4. Describe medication utilized. 5. Describe medical problems identified and treated. 6. Reassessment of suicide risk Summary of Hospital Course: Patient was admitted to the psychiatry unit. Individual and group therapy were provided. Patient was switched to Risperdal. She continued to be psychotic/ paranoia/delusions w/ poor insight into her mental illness. She was screened for involuntary psychiatric admission, was accepted and transferred. - Diagnosis (1) Schizoaffective disorder Status: Acute - Final Diagnosis (DSM 5) Condition upon Discharge: STABLE DSM 5: Schizoaffective Disorder Disposition: Trans to Other Acute Care Hosp Follow-up Treatment Plan: Schizoaffective Disorder; Patient transferred to [facility] for involuntary psychiatric admission -Continue Trazodone and Lexapro -Continue Risperdal 2 mg PO Q12 - Smoking Cessation Smoking Cessation Medication prescribed: No Reason for not providing: Not indicated - Antipsychotic Medications Pt discharged on 2 or more routine antipsychotic medications: No
== END 2017-04-20 23:10 | DRG 430 ==
LOC: H.ER 04:12 → H.ERHOLD 05:24 → H.STEP 10:20
PROVIDERS: ADMIT Psychiatry & Neurology Psychiatry; ATTEND Psychiatry & Neurology Psychiatry
PROC: GZHZZZZ Group Psychotherapy (ICD-10-PCS; principal; 2017-04-14)
DX: F25.9 Schizoaffective disorder, unspecified (principal); Z59.0 Homelessness; R45.851 Suicidal ideations; E02 Subclinical iodine-deficiency hypothyroidism; Z91.14 Patient's other noncompliance with medication regimen; I10 Essential (primary) hypertension; F17.200 Nicotine dependence, unspecified, uncomplicated; F32.9 Major depressive disorder, single episode, unspecified; F41.9 Anxiety disorder, unspecified

== ENCOUNTER 2017-05-24 03:00 | Emergency (ER) | payer MEDICAID, OTHER ==
[2017-05-24 03:17] VITALS: BMI 21.9
--- NOTE | 2017-05-24 03:39 | ED PDOC ---
HPI: General Adult Time Seen by Provider: 05/24/17 03:15 Chief Complaint (Nursing): Psychiatric Evaluation Chief Complaint (Provider): eval History Per: Patient, EMS Additional Complaint(s): 41 y/o female brought in by EMS from homeless long term for evaluation. Patient states her and her mother got in to argument tonight at the long term so 911 was called to kick her out and she was brought here. Patient calm at presents, denies acute medical or psychiatric complaints. Compliant with psychiatric medications. Requesting food. Past Medical History Reviewed: Historical Data, Nursing Documentation, Vital Signs Vital Signs: Last Vital Signs Temp 98.1 F 05/24/17 03:17 Pulse 81 05/24/17 03:17 Resp 16 05/24/17 03:17 BP 120/75 05/24/17 03:17 Pulse Ox 99 05/24/17 03:38 - Medical History PMH: Anxiety, Depression, HTN, Schizophrenia Denies: Diabetes, Hepatitis, HIV, Chronic Kidney Disease, Seizures, Sexually Transmitted Disease - Family History Family History: States: Unknown Family Hx - Immunization History Hx Tetanus Toxoid Vaccination: No Hx Influenza Vaccination: No Hx Pneumococcal Vaccination: No - Home Medications Home Medications: Ambulatory Orders Medication Instructions Recorded Escitalopram [Lexapro] 20 mg PO DAILY #30 tab 03/23/17 risperiDONE [RisperDAL Tab] 2 mg PO Q12 tab 04/20/17 traZODone [Desyrel] 100 mg PO HS tab 04/20/17 Benztropine [Benztropine Mesylate] 0.5 mg PO DAILY 04/30/17 - Allergies Allergies/Adverse Reactions: Allergies Allergy/AdvReac Type Severity Reaction Status Date / Time diphenhydramine Allergy RASH Verified 05/24/17 03:16 [From Benadryl] haloperidol [From Haldol] Allergy RASH Verified 05/24/17 03:16 olanzapine [From Zyprexa] Allergy VOMITING Verified 05/24/17 03:16 quetiapine [From Seroquel] Allergy RASH Verified 05/24/17 03:16 Tetracyclines Allergy RASH Verified 05/24/17 03:16 Review of Systems ROS Statement: Except As Marked, All Systems Reviewed And Found Negative Physical Exam - Reviewed Nursing Documentation Reviewed: Yes Vital Signs Reviewed: Yes - Physical Exam Appears: Positive for: Well, Non-toxic, No Acute Distress Head Exam: Positive for: ATRAUMATIC, NORMAL INSPECTION, NORMOCEPHALIC Skin: Positive for: Normal Color Eye Exam: Positive for: Normal appearance ENT: Positive for: Normal ENT Inspection Cardiovascular/Chest: Positive for: Regular Rate, Rhythm Respiratory: Positive for: Normal Breath Sounds Gastrointestinal/Abdominal: Positive for: Normal Exam Back: Positive for: Normal Inspection Extremity: Positive for: Normal ROM Neurologic/Psych: Positive for: Alert, Oriented - ECG O2 Sat by Pulse Oximetry: 99 - Progress ED Course And Treament: Patient has no acute medical or psychiatric complaints. Stable for discharge. Disposition - Clinical Impression Clinical Impression: Homeless - Patient ED Disposition Is Patient to be Admitted: No Counseled Patient/Family Regarding: Diagnosis, Need For Followup - Disposition Disposition: Routine/Home Disposition Time: 05:09 Condition: STABLE
[2017-05-24 06:21] VITALS: BP 117/69; PULSE 76; RESP 17; TEMP 98; O2SAT 98
== END 2017-05-24 06:18 | disposition home or self-care (01) ==
LOC: H.ER 03:00
DX: Z59.0 Homelessness (principal); F20.9 Schizophrenia, unspecified; F32.9 Major depressive disorder, single episode, unspecified; F41.9 Anxiety disorder, unspecified; I10 Essential (primary) hypertension

== ENCOUNTER 2017-05-28 00:48 | Emergency (ER) | payer OTHER ==
[2017-05-28 00:48] VITALS: BMI 21.9
[2017-05-28 00:58] VITALS: BP 119/80; PULSE 65; RESP 18; TEMP 98; O2SAT 100
== END 2017-05-28 01:05 | disposition left against medical advice (07) ==
LOC: H.ER 00:48
DX: Z02.89 Encounter for other administrative examinations (principal)

== ENCOUNTER 2017-05-29 14:06 | Emergency (ER) | payer MEDICAID, OTHER ==
[2017-05-29 14:06] VITALS: BMI 21.9
[2017-05-29 14:25] VITALS: RESP 18
[2017-05-29] MEDS ORDERED: Sodium Chloride 0.9% 1,000 ML IV STA (14:39)
--- NOTE | 2017-05-29 14:46 | ED PDOC ---
HPI: Abdomen Time Seen by Provider: 05/29/17 14:31 Chief Complaint (Nursing): Abdominal Pain History Per: Patient (Joan is a 41 yo undomiciled female with multiple visits to the ER for psych and abdominal pain. Her complaint is diffuse abdominal today that is associated with blood per rectum. She admits to having to strain and that her stool is hard. She also wants refills for anxiety meds and phenergan DM for cough. She denies fever or chills. She has been eating and denies vomiting or diarrhea. ) Past Medical History Reviewed: Historical Data, Nursing Documentation, Vital Signs Vital Signs: Last Vital Signs Temp 98.6 F 05/29/17 14:21 Pulse 73 05/29/17 14:21 Resp 18 05/29/17 14:21 BP 104/69 05/29/17 14:21 Pulse Ox 100 05/29/17 14:47 - Medical History PMH: Anxiety, Depression, HTN, Schizophrenia Denies: Diabetes, Hepatitis, HIV, Chronic Kidney Disease, Seizures, Sexually Transmitted Disease - Surgical History Surgical History: No Surg Hx - Family History Family History: States: Unknown Family Hx - Living Arrangements Living Arrangements: Other (undomiciled) - Immunization History Hx Tetanus Toxoid Vaccination: No Hx Influenza Vaccination: No Hx Pneumococcal Vaccination: No - Home Medications Home Medications: Ambulatory Orders Medication Instructions Recorded Escitalopram [Lexapro] 20 mg PO DAILY #30 tab 03/23/17 risperiDONE [RisperDAL Tab] 2 mg PO Q12 tab 04/20/17 traZODone [Desyrel] 100 mg PO HS tab 04/20/17 Benztropine [Benztropine Mesylate] 0.5 mg PO DAILY 04/30/17 Cephalexin [Keflex] 500 mg PO BID #14 capsule 05/28/17 Naproxen [Naprosyn] 500 mg PO BID #20 tab 05/28/17 - Allergies Allergies/Adverse Reactions: Allergies Allergy/AdvReac Type Severity Reaction Status Date / Time diphenhydramine Allergy RASH Verified 05/29/17 14:20 [From Benadryl] haloperidol [From Haldol] Allergy RASH Verified 05/29/17 14:20 olanzapine [From Zyprexa] Allergy VOMITING Verified 05/29/17 14:20 quetiapine [From Seroquel] Allergy RASH Verified 05/29/17 14:20 Tetracyclines Allergy RASH Verified 05/29/17 14:20 Review of Systems ROS Statement: Except As Marked, All Systems Reviewed And Found Negative Constitutional: Negative for: Fever Gastrointestinal: Positive for: Abdominal Pain, Constipation, Hematochezia. Negative for: Nausea, Vomiting, Diarrhea Physical Exam - Reviewed Nursing Documentation Reviewed: Yes Vital Signs Reviewed: Yes - Physical Exam Appears: Positive for: Well, Non-toxic, No Acute Distress Head Exam: Positive for: ATRAUMATIC, NORMAL INSPECTION, NORMOCEPHALIC Skin: Positive for: Normal Color, Warm, DRY Eye Exam: Positive for: Normal appearance ENT: Positive for: Normal ENT Inspection Neck: Positive for: Normal Cardiovascular/Chest: Positive for: Regular Rate, Rhythm Respiratory: Positive for: CNT, Normal Breath Sounds Gastrointestinal/Abdominal: Positive for: Normal Exam, Soft, Tenderness (diffuse , non focal - patient's response to the exam appears to be in excess of the degree of pressure applied) Back: Positive for: Normal Inspection Extremity: Positive for: Normal ROM Neurologic/Psych: Positive for: Alert, Oriented - ECG O2 Sat by Pulse Oximetry: 100 Medical Decision Making Medical Decision Making: abd pain (in excess of what is expected of palpation; patient is ambulatory without pain) rectal bleeding will do routine and determine need of imaging. Disposition - Clinical Impression Clinical Impression: Abdominal discomfort, Schizoaffective disorder, Homeless - Patient ED Disposition Is Patient to be Admitted: Transfer of Care - Disposition Disposition: Transfer of Care Disposition Time: 14:54 Condition: FAIR Forms: [employer] (Bulgarian) Patient Signed Over To: Zara Rivera Present On Arrival: None
[2017-05-29 15:23] LABS: BASO # 0.1 K/uL (0.0-0.2); BASO % 1.1 % (0.0-2.0); EOS # 0.1 K/uL (0.0-0.7); HEMOGLOBIN 12.7 g/dL (12.0-16.0); LYMPH # 1.7 K/uL (1.0-4.3); LYMPH % 18.1 % (20.0-40.0); MEAN CORPUSCULAR HEMOGLOBIN 26.5 pg (27.0-31.0); MEAN PLATELET VOLUME 10.1 fl (7.2-11.7); MONO # 0.6 K/uL (0.0-0.8); MONO % 6.4 % (0.0-10.0); NEUT # 6.9 K/uL (1.8-7.0); NEUT % 73.4 % (50.0-75.0); RBC 4.8 Mil/uL (3.80-5.20); WHITE BLOOD COUNT 9.4 K/uL (4.8-10.8)
[2017-05-29 15:25] LABS: MEAN CELL VOLUME 80.5 fl (81.0-99.0)
--- NOTE | 2017-05-29 15:26 | ED PDOC ---
- Laboratory Results Result Diagrams: 05/29/17 15:10 05/29/17 15:10 - ECG O2 Sat by Pulse Oximetry: 100 (RA) Pulse Ox Interpretation: Normal Medical Decision Making Medical Decision Making: Time: 1500 Patient endorsed to me by Dr. Hou pending ER workup, assessment, and disposition. Difficulty historian and may possibly need crisis eval, was requesting psych meds. 1530 Pt now reporting "I feel dirty. I feel disgusting." Trying to eat toothpaste in ER. When asked to give more specific details about symptoms, stops talking. Intermittently yells out nonsense, angry mood. 1630 Evaluated by CW who dw Psych oncall. Pt psychiatrically stable for dc. Labs with no emergently significant abnormalities. Tolerated PO in ER. Stable for dc with clinic followup. Scribe Attestation: Documented by Gail Kaur, acting as a scribe for Zara Rivera MD Provider Scribe Attestation: All medical record entries made by the Scribe were at my direction and personally dictated by me. I have reviewed the chart and agree that the record accurately reflects my personal performance of the history, physical exam, medical decision making, and the department course for this patient. I have also personally directed, reviewed, and agree with the discharge instructions and disposition. Disposition - Clinical Impression Clinical Impression: Abdominal discomfort, Schizoaffective disorder, Homeless - POA Present On Arrival: None - Disposition Referrals: [facility] [Outside] [facility] [Outside] Disposition: Routine/Home Disposition Time: 16:45 Condition: IMPROVED Additional Instructions: PLEASE FOLLOW UP AT THE CLINICS THIS WEEK FOR FURTHER MANAGEMENT. Prescriptions: Dicyclomine [Bentyl] 20 mg PO BID PRN #30 tab PRN Reason: abdominal pain Instructions: Acute Abdomen (Belly Pain)
[2017-05-29 15:43] LABS: CALCIUM 9.3 mg/dL (8.4-10.2); GFR AFRICAN-AMERICAN > 60; GFR NON-AFRICAN AMERICAN > 60; LIPASE 181 U/L (23-300)
[2017-05-29 16:01] LABS: ALBUMIN 4.1 g/dL (3.5-5.0); ALT/SGPT 91 U/L (9-52); AST/SGOT 61 U/L (14-36); BLOOD UREA NITROGEN 24 mg/dl (7-17)
[2017-05-29 17:20] VITALS: BP 139/82; PULSE 79; TEMP 98; O2SAT 98
== END 2017-05-29 17:17 | disposition home or self-care (01) ==
LOC: H.ER 14:06
DX: F25.9 Schizoaffective disorder, unspecified (principal); Z59.0 Homelessness; R10.9 Unspecified abdominal pain
CPT/HCPCS: 80053; 81025; 83690; 85025; 96360; 99284; J7040

== ENCOUNTER 2017-06-01 11:43 | Emergency (ER) | payer MEDICAID, OTHER ==
[2017-06-01 11:54] VITALS: BMI 21.2
[2017-06-01 11:55] VITALS: BP 118/73; PULSE 81; RESP 20; TEMP 98.1; O2SAT 98
--- NOTE | 2017-06-01 13:07 | ED PDOC ---
HPI: Abdomen Time Seen by Provider: 06/01/17 12:51 Chief Complaint (Nursing): GI Problem Chief Complaint (Provider): Abdominal Pain History Per: Patient History/Exam Limitations: no limitations Additional Complaint(s): Joan is a 41 y/o female who presents to the ED complaining of abdominal pain that started yesterday. She states she had bloody stool yesterday and was also recently diagnosed with a UTI, for which she is taking antibiotics. PMD: None Past Medical History Reviewed: Historical Data, Nursing Documentation, Vital Signs Vital Signs: Last Vital Signs Temp 98.1 F 06/01/17 11:54 Pulse 81 06/01/17 11:54 Resp 20 06/01/17 11:54 BP 118/73 06/01/17 11:54 Pulse Ox 98 06/01/17 18:09 - Medical History PMH: Anxiety, Depression, HTN, Schizophrenia Denies: Diabetes, Hepatitis, HIV, Chronic Kidney Disease, Seizures, Sexually Transmitted Disease - Family History Family History: States: Unknown Family Hx - Immunization History Hx Tetanus Toxoid Vaccination: No Hx Influenza Vaccination: No Hx Pneumococcal Vaccination: No - Home Medications Home Medications: Ambulatory Orders Medication Instructions Recorded Escitalopram [Lexapro] 20 mg PO DAILY #30 tab 03/23/17 risperiDONE [RisperDAL Tab] 2 mg PO Q12 tab 04/20/17 traZODone [Desyrel] 100 mg PO HS tab 04/20/17 Benztropine [Benztropine Mesylate] 0.5 mg PO DAILY 04/30/17 Cephalexin [Keflex] 500 mg PO BID #14 capsule 05/28/17 Naproxen [Naprosyn] 500 mg PO BID #20 tab 05/28/17 Dicyclomine [Bentyl] 20 mg PO BID PRN #30 tab 05/29/17 - Allergies Allergies/Adverse Reactions: Allergies Allergy/AdvReac Type Severity Reaction Status Date / Time diphenhydramine Allergy RASH Verified 06/01/17 11:50 [From Benadryl] haloperidol [From Haldol] Allergy RASH Verified 06/01/17 11:50 olanzapine [From Zyprexa] Allergy VOMITING Verified 06/01/17 11:50 quetiapine [From Seroquel] Allergy RASH Verified 06/01/17 11:50 Tetracyclines Allergy RASH Verified 06/01/17 11:50 Review of Systems ROS Statement: Except As Marked, All Systems Reviewed And Found Negative Gastrointestinal: Positive for: Abdominal Pain, Hematochezia Physical Exam - Reviewed Nursing Documentation Reviewed: Yes Vital Signs Reviewed: Yes - Physical Exam Appears: Positive for: No Acute Distress Skin: Positive for: Normal Color, Warm, Dry Cardiovascular/Chest: Positive for: Regular Rate, Rhythm Respiratory: Positive for: Normal Breath Sounds Gastrointestinal/Abdominal: Positive for: Normal Exam, Bowel Sounds (all 4 quadrants), Soft, Tenderness (diffuse). Negative for: Guarding, Rebound, Other (Soto's sign, Rovsing sign, Murckel sign) Back: Positive for: Normal Inspection. Negative for: L CVA Tenderness, R CVA Tenderness, Vertebral Tenderness Extremity: Positive for: Normal ROM. Negative for: Pedal Edema, Deformity Neurologic/Psych: Positive for: Alert, Oriented - Laboratory Results Result Diagrams: 06/01/17 13:30 06/01/17 13:30 - ECG O2 Sat by Pulse Oximetry: 98 (RA) Pulse Ox Interpretation: Normal Medical Decision Making Medical Decision Making: Time: 12:52 Initial Impression: Abdominal Pain Initial Plan: --CMP --CBC --Urinalysis Time: 13:14 --Glycerin ordered Pt had three bowel movements in the bathroom prior to discharge; pt then requested psych eval and was cleared for psych by Dr Mathews Scribe Attestation: Documented by Lee Hernández acting as a scribe for NATHALIA Trotter MDibe Attestation: All medical record entries made by the Scribe were at my direction and personally dictated by me. I have reviewed the chart and agree that the record accurately reflects my personal performance of the history, physical exam, medical decision making, and the department course for this patient. I have also personally directed, reviewed, and agree with the discharge instructions and disposition. Disposition - Clinical Impression Clinical Impression: Constipation, Homeless, Depression - Patient ED Disposition Is Patient to be Admitted: No - Disposition Referrals: [facility] [Outside] Disposition Time: 18:09 Condition: GOOD Instructions: Constipation, Adult (DC), Depression, Adult (DC) Forms: [employer] (Uzbek)
[2017-06-01 13:53] LABS: ALB/GLOB RATIO 1.1 (1.0-2.1); ALBUMIN 3.8 g/dL (3.5-5.0); ALT/SGPT 78 U/L (9-52); AST/SGOT 38 U/L (14-36); BLOOD UREA NITROGEN 18 mg/dl (7-17); GFR AFRICAN-AMERICAN > 60; GFR NON-AFRICAN AMERICAN > 60; URINE COLOR AMBER (YELLOW)
[2017-06-01 13:54] LABS: SQUAMOUS EPITHIAL 18 /hpf (0-5); URINE AMORPHOUS SEDIMENT MODERATE /ul (<OCC); URINE BACTERIA OCC (<OCC); URINE BILIRUBIN NEGATIVE (NEGATIVE); URINE BLOOD NEGATIVE (NEGATIVE); URINE CLARITY TURBID (Clear); URINE GLUCOSE (UA) NEG (Normal); URINE LEUKOCYTE ESTERASE NEG Leu/uL (Negative); URINE PROTEIN NEGATIVE (NEGATIVE); URINE UROBILINOGEN 0.2-1.0 mg/dL (0.2-1.0)
[2017-06-01 13:58] LABS: BASO # 0.1 K/uL (0.0-0.2); BASO % 0.6 % (0.0-2.0); EOS % 0.4 % (0.0-4.0); HEMOGLOBIN 11.6 g/dL (12.0-16.0); LYMPH # 1.6 K/uL (1.0-4.3); LYMPH % 17.5 % (20.0-40.0); MEAN CELL VOLUME 84.8 fl (81.0-99.0); MEAN CORPUSCULAR HEMOGLOBIN 26.6 pg (27.0-31.0); MEAN CORPUSCULAR HGB CONC 31.3 g/dL (33.0-37.0); MEAN PLATELET VOLUME 9.7 fl (7.2-11.7); MONO # 0.7 K/uL (0.0-0.8); MONO % 7.5 % (0.0-10.0); NEUT # 6.6 K/uL (1.8-7.0); RBC 4.35 Mil/uL (3.80-5.20); RED CELL DISTRIBUTION WIDTH 15.1 % (11.5-14.5); WHITE BLOOD COUNT 8.9 K/uL (4.8-10.8)
== END 2017-06-01 18:18 | disposition home or self-care (01) ==
LOC: H.ER 11:43
DX: K59.00 Constipation, unspecified (principal); F32.9 Major depressive disorder, single episode, unspecified; Z59.0 Homelessness; F20.9 Schizophrenia, unspecified; F41.9 Anxiety disorder, unspecified; I10 Essential (primary) hypertension

== ENCOUNTER 2017-06-05 08:31 | Emergency (ER) | payer OTHER ==
[2017-06-05 08:43] VITALS: BP 105/61; PULSE 74; RESP 20; TEMP 97.4
[2017-06-05 08:44] VITALS: BMI 23.0
[2017-06-05 09:04] VITALS: O2SAT 98
--- NOTE | 2017-06-05 09:35 | ED PDOC ---
HPI: General Adult Time Seen by Provider: 06/05/17 09:05 Chief Complaint (Nursing): Lower Extremity Problem/Injury Additional Complaint(s): 41 y/o F c PMHx schizophrenia, insomnia, Depression, anxiety, constipation, homelessness p/w request for psychiatric medications that she has not taken in a long time, toe blister, and continued constipation. Patient states she does not follow up with a psychiatrist. She denies HI/SI/hallucinations. She also states she walks around a lot because she is homeless and has developed a blister to the 2nd digit of her foot. Denies spreading erythema, discharge, or fever. She also reports constipation and takes colace. She shows a bottle of miralax in her purse but states she never takes it. She denies vomiting or abdominal pain. Past Medical History Vital Signs: Last Vital Signs Temp 97.4 F L 06/05/17 08:42 Pulse 74 06/05/17 08:42 Resp 20 06/05/17 08:42 BP 105/61 06/05/17 08:42 Pulse Ox 98 06/05/17 09:46 - Medical History PMH: Anxiety, Depression, HTN, Schizophrenia Denies: Diabetes, Hepatitis, HIV, Chronic Kidney Disease, Seizures, Sexually Transmitted Disease - Family History Family History: States: Unknown Family Hx - Immunization History Hx Tetanus Toxoid Vaccination: No Hx Influenza Vaccination: No Hx Pneumococcal Vaccination: No - Home Medications Home Medications: Ambulatory Orders Medication Instructions Recorded Escitalopram [Lexapro] 20 mg PO DAILY #30 tab 03/23/17 risperiDONE [RisperDAL Tab] 2 mg PO Q12 tab 04/20/17 traZODone [Desyrel] 100 mg PO HS tab 04/20/17 Benztropine [Benztropine Mesylate] 0.5 mg PO DAILY 04/30/17 Cephalexin [Keflex] 500 mg PO BID #14 capsule 05/28/17 Naproxen [Naprosyn] 500 mg PO BID #20 tab 05/28/17 Dicyclomine [Bentyl] 20 mg PO BID PRN #30 tab 05/29/17 Escitalopram [Lexapro] 20 mg PO DAILY #14 tab 06/05/17 Risperidone [Risperdal] 2 mg PO Q12H #28 tablet 06/05/17 traZODone [Desyrel] 100 mg PO QPM #14 tab 06/05/17 - Allergies Allergies/Adverse Reactions: Allergies Allergy/AdvReac Type Severity Reaction Status Date / Time diphenhydramine Allergy RASH Verified 06/05/17 09:02 [From Benadryl] haloperidol [From Haldol] Allergy RASH Verified 06/05/17 09:02 olanzapine [From Zyprexa] Allergy VOMITING Verified 06/05/17 09:02 quetiapine [From Seroquel] Allergy RASH Verified 06/05/17 09:02 Tetracyclines Allergy RASH Verified 06/05/17 09:02 Review of Systems ROS Statement: Except As Marked, All Systems Reviewed And Found Negative Constitutional: Negative for: Fever Respiratory: Negative for: Shortness of Breath Physical Exam - Physical Exam Comments: Gen: NAD, appears disheveled Head: NC Eyes: No scleral icterus ENT: MMM Neck: No midline tenderness Chest: No tenderness CV: Regular rate Lungs: CTA b/l Abd: Soft, NT Back: No midline tenderness Skin: 2nd digit blister on toe without discharge or pus Extremities: FROM x 4 Neuro: Alert, no focal deficit - ECG O2 Sat by Pulse Oximetry: 98 Medical Decision Making Medical Decision Making: Patient was able to have a bowel movement in waste basket in patient room. Advised patient to follow up with psych in [facility], podiatry clinic, gastroenterology. No emergent symptoms for further evaluation and treatment at this time. Disposition - Clinical Impression Clinical Impression: Constipation, Homeless, Schizophrenia, Blister - Patient ED Disposition Is Patient to be Admitted: No - Disposition Referrals: Podiatry Clinic [Outside] [facility] [Outside] Disposition: Routine/Home Disposition Time: 09:42 Condition: STABLE Prescriptions: Escitalopram [Lexapro] 20 mg PO DAILY #14 tab Risperidone [Risperdal] 2 mg PO Q12H #28 tablet traZODone [Desyrel] 100 mg PO QPM #14 tab Instructions: Schizophrenia, Blisters, Constipation, Adult (DC) Forms: [employer] (Urdu)
== END 2017-06-05 10:24 | disposition home or self-care (01) ==
LOC: H.ER 08:31
DX: K59.00 Constipation, unspecified (principal); F20.9 Schizophrenia, unspecified; Z59.0 Homelessness; F32.9 Major depressive disorder, single episode, unspecified; F41.9 Anxiety disorder, unspecified; G47.00 Insomnia, unspecified; I10 Essential (primary) hypertension

== ENCOUNTER 2017-06-05 16:55 | Emergency (ER) | payer OTHER ==
[2017-06-05 16:55] VITALS: BMI 23.0
[2017-06-05 16:58] VITALS: BP 118/79; PULSE 81; RESP 16; TEMP 98.4; O2SAT 100
--- NOTE | 2017-06-05 17:54 | ED PDOC ---
Lower Extremity Pain/Injury Time Seen by Provider: 06/05/17 17:52 Chief Complaint (Nursing): Lower Extremity Problem/Injury Chief Complaint (Provider): foot pain History Per: Patient (41 y/o female Homeless here with left foot pain ongoing. Denies any fevers/chills. ) Past Medical History Reviewed: Historical Data, Nursing Documentation, Vital Signs Vital Signs: Last Vital Signs Temp 98.4 F 06/05/17 16:57 Pulse 81 06/05/17 16:57 Resp 16 06/05/17 16:57 BP 118/79 06/05/17 16:57 Pulse Ox 100 06/05/17 16:57 - Medical History PMH: Anxiety, Depression, HTN, Schizophrenia Denies: Diabetes, Hepatitis, HIV, Chronic Kidney Disease, Seizures, Sexually Transmitted Disease - Family History Family History: States: Unknown Family Hx - Immunization History Hx Tetanus Toxoid Vaccination: No Hx Influenza Vaccination: No Hx Pneumococcal Vaccination: No - Home Medications Home Medications: Ambulatory Orders Medication Instructions Recorded Escitalopram [Lexapro] 20 mg PO DAILY #30 tab 03/23/17 risperiDONE [RisperDAL Tab] 2 mg PO Q12 tab 04/20/17 traZODone [Desyrel] 100 mg PO HS tab 04/20/17 Benztropine [Benztropine Mesylate] 0.5 mg PO DAILY 04/30/17 Cephalexin [Keflex] 500 mg PO BID #14 capsule 05/28/17 Naproxen [Naprosyn] 500 mg PO BID #20 tab 05/28/17 Dicyclomine [Bentyl] 20 mg PO BID PRN #30 tab 05/29/17 Escitalopram [Lexapro] 20 mg PO DAILY #14 tab 06/05/17 Risperidone [Risperdal] 2 mg PO Q12H #28 tablet 06/05/17 traZODone [Desyrel] 100 mg PO QPM #14 tab 06/05/17 - Allergies Allergies/Adverse Reactions: Allergies Allergy/AdvReac Type Severity Reaction Status Date / Time diphenhydramine Allergy RASH Verified 06/05/17 09:02 [From Benadryl] haloperidol [From Haldol] Allergy RASH Verified 06/05/17 09:02 olanzapine [From Zyprexa] Allergy VOMITING Verified 06/05/17 09:02 quetiapine [From Seroquel] Allergy RASH Verified 06/05/17 09:02 Tetracyclines Allergy RASH Verified 06/05/17 09:02 Review of Systems ROS Statement: Except As Marked, All Systems Reviewed And Found Negative Musculoskeletal: Positive for: Foot Pain Physical Exam - Reviewed Nursing Documentation Reviewed: Yes Vital Signs Reviewed: Yes - Physical Exam Appears: Positive for: Well, Non-toxic, No Acute Distress Head Exam: Positive for: ATRAUMATIC, NORMAL INSPECTION, NORMOCEPHALIC Skin: Positive for: Normal Color, Warm, DRY Eye Exam: Positive for: EOMI, Normal appearance, PERRL ENT: Positive for: Normal ENT Inspection Neck: Positive for: Normal, Painless ROM Cardiovascular/Chest: Positive for: Regular Rate, Rhythm Respiratory: Positive for: CNT, Normal Breath Sounds Gastrointestinal/Abdominal: Positive for: Normal Exam, Soft Back: Positive for: Normal Inspection Extremity: Positive for: Normal ROM, Other (blister noted distal tip 2nd digit. No surrounding erythema noted.) Neurologic/Psych: Positive for: Alert, Oriented - ECG O2 Sat by Pulse Oximetry: 100 - Progress ED Course And Treament: BLister dressed in ED with bacitracin and guaze. Patient to be given hard shoe. Advised f/u with podiatry clinic. Disposition - Clinical Impression Clinical Impression: Blister - Patient ED Disposition Is Patient to be Admitted: No - Disposition Referrals: Podiatry Clinic [Outside] Disposition: Routine/Home Disposition Time: 17:54 Condition: FAIR Instructions: Blisters
== END 2017-06-05 18:45 | disposition home or self-care (01) ==
LOC: H.ER 16:55
DX: S90.822A Blister (nonthermal), left foot, initial encounter (principal); Y92.89 Other specified places as the place of occurrence of the external cause; F20.9 Schizophrenia, unspecified; F32.9 Major depressive disorder, single episode, unspecified; F41.9 Anxiety disorder, unspecified; I10 Essential (primary) hypertension

== ENCOUNTER 2017-12-11 09:46 | Emergency (ER) | payer MEDICAID, OTHER ==
[2017-12-11 09:47] VITALS: BMI 23.0
[2017-12-11 09:53] VITALS: O2SAT 98
[2017-12-11 10:32] LABS: BASO # 0.1 K/uL (0.0-0.2); BASO % 0.7 % (0.0-2.0); EOS # 0.1 K/uL (0.0-0.7); EOS % 0.8 % (0.0-4.0); HEMOGLOBIN 12.3 g/dL (12.0-16.0); LYMPH # 1.4 K/uL (1.0-4.3); LYMPH % 16.4 % (20.0-40.0); MEAN CELL VOLUME 82.2 fl (81.0-99.0); MEAN CORPUSCULAR HEMOGLOBIN 26.4 pg (27.0-31.0); MEAN CORPUSCULAR HGB CONC 32.2 g/dL (33.0-37.0); MEAN PLATELET VOLUME 9.2 fl (7.2-11.7); MONO # 0.4 K/uL (0.0-0.8); MONO % 4.9 % (0.0-10.0); NEUT # 6.5 K/uL (1.8-7.0); NEUT % 77.2 % (50.0-75.0); RBC 4.64 Mil/uL (3.80-5.20); RED CELL DISTRIBUTION WIDTH 14.2 % (11.5-14.5); WHITE BLOOD COUNT 8.4 K/uL (4.8-10.8)
[2017-12-11] MEDS ORDERED: Sodium Chloride 0.9% 1,000 ML IV SCH (10:45)
[2017-12-11 10:46] LABS: ALB/GLOB RATIO 1.3 (1.0-2.1); ALBUMIN 3.9 g/dL (3.5-5.0); ALT/SGPT 29 U/L (9-52); AMYLASE 119 U/L (30-110); AST/SGOT 22 U/L (14-36); BLOOD UREA NITROGEN 19 mg/dl (7-17); CALCIUM 8.9 mg/dL (8.4-10.2); GFR NON-AFRICAN AMERICAN > 60; LIPASE 150 U/L (23-300)
[2017-12-11 10:55] LABS: SQUAMOUS EPITHIAL 27 /hpf (0-5); URINE BACTERIA RARE (<OCC); URINE BILIRUBIN NEGATIVE (NEGATIVE); URINE BLOOD NEGATIVE (NEGATIVE); URINE CLARITY CLOUDY (Clear); URINE COLOR AMBER (YELLOW); URINE GLUCOSE (UA) NEG (Normal); URINE HYALINE CAST 0-2 /hpf (0-2); URINE LEUKOCYTE ESTERASE MOD Leu/uL (Negative); URINE PROTEIN 30 mg/dL (NEGATIVE); URINE UROBILINOGEN 0.2-1.0 mg/dL (0.2-1.0)
--- NOTE | 2017-12-11 10:59 | ED PDOC ---
Addendum entered and electronically signed by Elaina Ley RPA-C 12/13/17 10:43: Addendum Addendum: 12/13/17 10:40 Urine Culture: (+) E Coli Patient prescribed Augmentin per Dr Fischer. Strict return precautions given to p atient if she does not feel improved within 48 hours. Pharmacy: [phone] Original Note: HPI: Abdomen Time Seen by Provider: 12/11/17 09:54 Chief Complaint (Nursing): GI Problem Chief Complaint (Provider): N/V and abdominal pain x 1 week History Per: Patient History/Exam Limitations: no limitations Onset/Duration Of Symptoms: Days (1 week), Intermittent Episodes (abdominal pain is intermittent ) Outside of [place] travel?: No Current Symptoms Are (Timing): Still Present Location Of Pain/Discomfort: RUQ, Epigastric Quality Of Discomfort: Dull, Aching Associated Symptoms: Nausea, Vomiting Exacerbating Factors: None Last Bowel Movement: Yesterday Additional Complaint(s): 42 y/o undomiciled Female with PMH of Anxiety, Depression, HTN, Schizophrenia and multiple ED visits in the past year for abdominal pain related to constipation who presents today c/o N/V and dull epigastric abdominal pain X 1 week. She states that she has been feeling dizzy, especially with standing. Denies fever, chills, night sweats, C/P, SOB, palpitations, sore throat. +dysuria and frequency. Further denies hematemesis, change in bowel habits. Denies hx of HTN, HL, CVA/TIA, CAD/ND, gallstones. No surgical hx. Has chronic constipation but gave herself an enema yesterday and had BM. LMP was Jan 2017. Abnormal Vaginal Bleeding: No Past Medical History Reviewed: Historical Data, Nursing Documentation, Vital Signs Vital Signs: Last Vital Signs Temp 98.6 F 12/11/17 10:06 Pulse 95 H 12/11/17 09:52 Resp 18 12/11/17 09:52 BP 109/70 12/11/17 09:52 Pulse Ox 98 12/11/17 09:52 - Medical History PMH: Anxiety, Depression, HTN, Schizophrenia Denies: Diabetes, Hepatitis, HIV, Chronic Kidney Disease, Seizures, Sexually Transmitted Disease - Surgical History Surgical History: No Surg Hx - Family History Family History: States: Unknown Family Hx - Living Arrangements Living Arrangements: Other (homeless prison) - Social History Current smoker - smoking cessation education provided: No Alcohol: None Drugs: Denies - Immunization History Hx Tetanus Toxoid Vaccination: No Hx Influenza Vaccination: No Hx Pneumococcal Vaccination: No - Home Medications Home Medications: Ambulatory Orders Medication Instructions Recorded traZODone [Desyrel] 100 mg PO HS tab 04/20/17 Benztropine [Benztropine Mesylate] 0.5 mg PO DAILY 04/30/17 Escitalopram [Lexapro] 20 mg PO DAILY #14 tab 06/05/17 Aluminum Hydroxide/Magnesium H 30 ml PO TID #100 ml 06/13/17 [Maalox 30 ml] Albuterol Sulfate [Proair Hfa] 1 puff IH Q6 PRN #1 inh 07/10/17 Azithromycin [Zithromax] 250 mg PO DAILY #4 tab 07/10/17 Lactulose 30 ml PO DAILY PRN #600 ml 07/10/17 Risperidone [Risperdal] 2 mg PO DAILY 07/10/17 predniSONE [predniSONE Tab] 2 tab PO DAILY #8 tab 07/10/17 Nitrofurantoin Macrocrystals 100 mg PO BID #14 cap 12/11/17 [Macrobid] Pantoprazole Sodium [Protonix] 40 mg PO DAILY #30 ect 12/11/17 - Allergies Allergies/Adverse Reactions: Allergies Allergy/AdvReac Type Severity Reaction Status Date / Time diphenhydramine Allergy RASH Verified 06/13/17 20:10 [From Benadryl] haloperidol [From Haldol] Allergy RASH Verified 06/13/17 20:10 olanzapine [From Zyprexa] Allergy VOMITING Verified 06/13/17 20:10 quetiapine [From Seroquel] Allergy RASH Verified 06/13/17 20:10 Tetracyclines Allergy RASH Verified 06/13/17 20:10 Review of Systems ROS Statement: Except As Marked, All Systems Reviewed And Found Negative Constitutional: Positive for: Weakness Gastrointestinal: Positive for: Nausea, Vomiting, Abdominal Pain (epigastric/RUQ), Constipation (chronic ) Neurological: Positive for: Dizziness (dizziness for the past few days) Physical Exam - Reviewed Vital Signs Reviewed: Yes - Physical Exam Appears: Positive for: Uncomfortable Skin: Positive for: Normal Color Eye Exam: Positive for: Normal appearance, PERRL ENT: Positive for: Normal ENT Inspection Neck: Positive for: Normal Cardiovascular/Chest: Positive for: Regular Rate, Rhythm Respiratory: Positive for: Normal Breath Sounds Gastrointestinal/Abdominal: Positive for: Bowel Sounds (normoactive), Soft, Tenderness (tenderness on palpation of epigastrium and RUQ, no rebound ten derness, no mass. ) Lymphatic: Positive for: Normal Exam Neurologic/Psych: Positive for: Alert, Oriented - Laboratory Results Result Diagrams: 12/11/17 10:25 12/11/17 10:25 Urine POC: Negative Urine dip results: Positive for: Leukocyte Esterase, Nitrate - ECG O2 Sat by Pulse Oximetry: 98 - Progress ED Course And Treament: Abdominal U/S to evaluate Gallbladder ordered Urine dipstick: + for large LE, large nitrates, large blood and large bilirubin Urine preg POC: negative Maalox 30mL PO x 1 given. IV and normal Saline 1L @ 250ml/hr ordered given possible mild dehydration from vomiting. Orthostatics negative: Lying 102/57 HR 75; sitting BP: 103/67 HR 79, standing 104/72 HR 89 Nausea improved after fluid administration. Medical Decision Making Medical Decision Makin42 y/o F with chronic constipation c/o N/V and epigastric pain X 1 week with associated dizziness. Further c/o dysuria. Urine dip: + for LE and nitrates, abdominal U/S: negative for cholelithiasis. D/C home on Macrobid 100mg PO BID x 5 days for UTI. Advised to avoid acidic foods. Script for Pantoprazole 40mg PO daily given. F/u with PMD for further evaluation of likely gastritis. Disposition - Clinical Impression Clinical Impression: Gastritis, Gastritis, UTI (urinary tract infection) - Patient ED Disposition Is Patient to be Admitted: No Counseled Patient/Family Regarding: Studies Performed - Disposition Referrals: [facility] [Outside] Disposition: Routine/Home Disposition Time: 14:40 Condition: STABLE Additional Instructions: avoid acidic foods. F/u with primary care doctor for further evaluation of persistent stomach pain. Return to ER if symptoms worsen or notice blood in stool. F/up with handy man regarding menstruation. Take antibiotic (Macrobid) for urinary tract infection Prescriptions: Nitrofurantoin Macrocrystals [Macrobid] 100 mg PO BID #14 cap Pantoprazole Sodium [Protonix] 40 mg PO DAILY #30 ect Instructions: Gastritis (DC) Forms: [employer] (Arabic) Print Language: BHUTANESE
--- NOTE | 2017-12-11 13:50 | US ---
Date of service: 12/11/2017 HISTORY: epigastric pain, N/V COMPARISON: None. TECHNIQUE: Sonographic evaluation of the right upper quadrant of the abdomen. FINDINGS: LIVER: Measures 12.5 cm in length. Normal echogenicity of the liver parenchyma. No mass. No intrahepatic bile duct dilatation. GALLBLADDER: Gallbladder appears incompletely distended that may account for slight gallbladder wall thickening which measures 3.3 mm.. No evidence of intraluminal the gallstones.. No sign evidence of pericholecystic fluid collections or sonographic [place] COMMON BILE DUCT: Measures 2.4 mm. No stones. No dilatation. PANCREAS: Unremarkable as visualized. No mass. No ductal dilatation. RIGHT KIDNEY: Measures cm in length. Normal echogenicity. No calculus, mass, or hydronephrosis. AORTA: No aneurysmal dilatation. IVC: Unremarkable. OTHER FINDINGS: None . IMPRESSION: No evidence of cholelithiasis
[2017-12-11] MEDS ORDERED: Bacitracin 500 Units/gm Oint Foilpak UD TOP ONE (14:11)
[2017-12-11] MEDS ORDERED: Alum-Mag Hydrox-Simethicone Susp (30 mL) PO ONE (14:16)
[2017-12-11] MEDS ORDERED: Alum-Mag Hydrox-Simethicone Susp (30 mL) ONE (14:33)
[2017-12-11 15:51] VITALS: BP 100/70; PULSE 78; RESP 20; TEMP 98
== END 2017-12-11 14:40 | disposition home or self-care (01) ==
LOC: H.ER 09:46
DX: K29.70 Gastritis, unspecified, without bleeding (principal); N39.0 Urinary tract infection, site not specified; I10 Essential (primary) hypertension
CPT/HCPCS: 76705; 80053; 81003; 82150; 83690; 83735; 85025; 87086; 87181; 99284; J7030